=== PATIENT | female | born 1980 ===

== ENCOUNTER 2021-12-31 09:30 | Outpatient (CLI) | payer OTHER | END 2021-12-31 09:32 | disposition home or self-care (01) | LOC: SONOGRAMA 09:30 | PROVIDERS: ATTEND Obstetrics & Gynecology | DX: N84.0 Polyp of corpus uteri (principal) ==

== ENCOUNTER 2022-02-25 06:25 | Day surgery (SDC) | payer OTHER ==
[~2022-02-25 06:25] MED LIST: CYMBALTA60 MG PO
== END 2022-02-25 14:45 | disposition home or self-care (01) ==
LOC: CIR.AMB 06:25 → EDBD 11:15 → CIR.AMB 11:15
PROVIDERS: ATTEND Obstetrics & Gynecology
DX: N84.0 Polyp of corpus uteri (principal); Z20.822 Contact with and (suspected) exposure to COVID-19; Z86.16 Personal history of COVID-19; E66.9 Obesity, unspecified

== ENCOUNTER 2024-07-29 09:04 | Outpatient (CLI) | payer OTHER | END 2024-07-29 09:07 | disposition home or self-care (01) | LOC: SONOGRAMA 09:04 | PROVIDERS: ATTEND Pathology Anatomic Pathology | DX: D34 Benign neoplasm of thyroid gland (principal); E06.3 Autoimmune thyroiditis; E04.2 Nontoxic multinodular goiter ==